=== PATIENT | male | born 1995 | race Caucasian/White ===

== ENCOUNTER 2024-07-18 23:07 | Emergency (ER) | payer BC ==
[2024-07-19] MEDS ORDERED: Oxymetazoline HCl 0.05% (30 ML BOT) ONE (00:04)
== END 2024-07-19 00:15 | disposition home or self-care (01) ==
LOC: MADERS 23:07
DX: R04.2 Hemoptysis (principal); F17.220 Nicotine dependence, chewing tobacco, uncomplicated
CPT/HCPCS: 99284